=== PATIENT | male | born 1980 | race American Indian/Alaskan Native ===

== ENCOUNTER 2017-01-22 16:55 | Emergency (ER) | payer SELFPAY ==
[2017-01-22 17:06] VITALS: BP 141/86
[2017-01-22] MEDS: BOOSTRIX IM ONE (18:46)
[2017-01-22] MEDS: MOTRIN PO ONE (18:47)
[2017-01-22] MEDS: NORCO 5/325 PO ONE (18:47)
[2017-01-22] MEDS: ZOFRAN ODT PO ONE (18:48)
--- NOTE | 2017-01-22 19:09 | XRay Report ---
FINAL REPORT PROCEDURE: Left hand. TECHNIQUE: Three views. HISTORY: Injury to 4th and 5th fingers. COMPARISON: No prior studies are available for comparison. FINDINGS: There is a comminuted fracture involving the diaphysis of the distal phalanx of the ring finger. There is a small intermediate fragment displaced anteriorly by approximately 5.5 millimeters. The overall alignment of the main distal fragment is nearly anatomic. There is associated soft tissue injury. The remaining bones appear intact. IMPRESSION: Comminuted fracture of the distal phalanx of the ring finger.
--- NOTE | 2017-01-22 19:36 | Emergency Department Report ---
HPI - General Chief Complaint: Wound/Laceration Time Seen by Provider: 01/22/17 18:30 - HPI HPI: 36-year-old male presents today with a laceration to his left ring finger that occurred at 1500 hrs. today. Patient states that the ladder snapped and fell on his finger. Positive for bleeding at the time of injury, no active bleeding. Describes his pain as 10 out of 10 constant, sharp, stabbing pain. Denies numbness, weakness, paresthesias. Tetanus status unknown. Denies fever , chills, nausea, vomiting, chest pain, shortness of breath, abdominal pain. ED Past Medical Hx - Past Medical History Previous Medical History?: No - Surgical History Past Surgical History?: No - Social History Smoking Status: Never Smoker Substance Use Type: Alcohol - Medications Home Medications: Home Medications Medication Instructions Recorded Confirmed Last Taken Type Cephalexin [Keflex] 500 mg PO Q6HR #20 capsule 01/22/17 Unknown Rx HYDROcodone/APAP 5-325 [Ava 1 each PO Q6HR PRN #20 tablet 01/22/17 Unknown Rx 5/325] Ibuprofen [Motrin 800 MG tab] 800 mg PO Q8HR PRN #30 tablet 01/22/17 Unknown Rx ED Review of Systems ROS: Stated complaint: LT HAND LACERATION Other details as noted in HPI Constitutional: denies: chills, fever, malaise Eyes: denies: eye pain ENT: denies: ear pain, throat pain, congestion Respiratory: denies: cough, shortness of breath, wheezing Cardiovascular: denies: chest pain, palpitations Endocrine: no symptoms reported Gastrointestinal: denies: abdominal pain, nausea, vomiting Neurological: denies: headache, weakness, numbness, paresthesias Physical Exam - Physical Exam Vital Signs: Vital Signs 01/22/17 01/22/17 17:00 18:47 Temperature 98.5 F Pulse Rate 73 Respiratory 18 18 Rate Blood Pressure 141/86 O2 Sat by Pulse 96 Oximetry Physical Exam: GENERAL: The patient is well-developed and well-nourished. Patient is in NAD. HEAD: Normocephalic. Atraumatic. CHEST/LUNGS: Clear to auscultation throughout. HEART/CARDIOVASCULAR: Regular rate and rhythm. No murmurs, rubs or gallops. ABDOMEN: Abdomen is soft, nontender. No guarding or rebound tenderness. LEFT HAND: Full wrist ROM. Limited 4th digit ROM secondary to pain. 1 cm superficial laceration noted over the proximal nail fold and 1 cm superficial laceration noted over the palmar aspect of distal 4th digit. No active bleeding. Normal sensation. Peripheral pulses intact. Capillary refill less than 2 seconds. NEURO: Alert and oriented x 3. Normal gait. ED Course Vital Signs 01/22/17 01/22/17 17:00 18:47 Temperature 98.5 F Pulse Rate 73 Respiratory 18 18 Rate Blood Pressure 141/86 O2 Sat by Pulse 96 Oximetry ED Medical Decision Making - Lab Data Vital Signs 01/22/17 01/22/17 17:00 18:47 Temperature 98.5 F Pulse Rate 73 Respiratory 18 18 Rate Blood Pressure 141/86 O2 Sat by Pulse 96 Oximetry - Radiology Data Radiology results: report reviewed HISTORY: Injury to 4th and 5th fingers. COMPARISON: No prior studies are available for comparison. FINDINGS: There is a comminuted fracture involving the diaphysis of the distal phalanx of the ring finger. There is a small intermediate fragment displaced anteriorly by approximately 5.5 millimeters. The overall alignment of the main distal fragment is nearly anatomic. There is associated soft tissue injury. The remaining bones appear intact. IMPRESSION: Comminuted fracture of the distal phalanx of the ring finger. - Medical Decision Making 36-year-old male presents today with a laceration to his left ring finger. His x-ray results reveal a comminuted fracture of the distal phalanx of her left ring finger. His wound has been copiously irrigated and cleaned with normal saline and Betadine. The wound has been dressed and his finger has been put in an aluminum splint. He has been provided with a referral for orthopedics to follow up with. His tetanus status has been updated. Patient reports pain control post medication. Consulted with Dr. Krishnamurthy. Patient is in no acute distress at this time. He will be discharged home and is encouraged to follow up with a primary care provider. He will be sent home on Keflex, Ava and ibuprofen and is encouraged to return to the emergency room for any worsening symptoms. Critical care attestation.: If time is entered above; I have spent that time in minutes in the direct care of this critically ill patient, excluding procedure time. ED Disposition Clinical Impression: Laceration of finger Qualifiers: Encounter type: initial encounter Qualified Code(s): S61.219A - Laceration without foreign body of unspecified finger without damage to nail, initial encounter Fracture of distal phalanx of finger Qualifiers: Encounter type: initial encounter Finger: ring finger Fracture type: open Fracture alignment: displaced Laterality: left Qualified Code(s): S62.635B - Displaced fracture of distal phalanx of left ring finger, initial encounter for open fracture Disposition: DISCHARGED TO HOME OR SELFCARE Is pt being admited?: No Does the pt Need Aspirin: No Condition: Stable Instructions: Finger Fracture (ED), Finger Laceration (ED) Additional Instructions: Follow-up with orthopedic. Return to the emergency department if symptoms worsen. Prescriptions: Cephalexin [Keflex] 500 mg PO Q6HR #20 capsule HYDROcodone/APAP 5-325 [Ava 5/325] 1 each PO Q6HR PRN #20 tablet PRN Reason: Pain Ibuprofen [Motrin 800 MG tab] 800 mg PO Q8HR PRN #30 tablet PRN Reason: Pain Referrals: PRIMARY CAREMD [Primary Care Provider] - 3-5 Days LORRAINE DE LUNA MD [Staff Physician] - 3-5 Days TRICE ASH MD [Staff Physician] - 3-5 Days Forms: Work/School Release Form(ED) Time of Disposition: 21:31
[2017-01-22] MEDS: MORPHINE IM ONE (19:43)
[2017-01-22] MEDS: NACL 0.9% IR ONE (20:38)
== END 2017-01-22 21:45 | disposition home or self-care (01) ==
LOC: ED 16:55
DX: S61.213A Laceration without foreign body of left middle finger without damage to nail, initial encounter (principal); S62.635B Displaced fracture of distal phalanx of left ring finger, initial encounter for open fracture; W11.XXXA Fall on and from ladder, initial encounter; Y93.9 Activity, unspecified; Y92.9 Unspecified place or not applicable; Y99.9 Unspecified external cause status
CPT/HCPCS: 29130; 73130; 90471; 90715; 96372; 99283; J2270; Q0162